=== PATIENT | female | born 1955 | race African-American/Black ===

== ENCOUNTER → 2022-03-25 | Emergency (ER) | payer MEDICARE, MEDICAID | LOC: NAV ERS 21:38 | DX: U07.1 COVID-19 (principal); J40 Bronchitis, not specified as acute or chronic; Z79.899 Other long term (current) drug therapy; Z79.01 Long term (current) use of anticoagulants; I10 Essential (primary) hypertension; E78.5 Hyperlipidemia, unspecified; F17.210 Nicotine dependence, cigarettes, uncomplicated | CPT/HCPCS: 71046; U0003; U0005 ==

== ENCOUNTER 2022-05-08 09:30 | Emergency (ER) | payer OTHER, MEDICAID, MEDICARE | END 2022-05-08 10:48 | disposition home or self-care (01) | LOC: NAV ERS 09:30 | DX: S20.211A Contusion of right front wall of thorax, initial encounter (principal); S20.01XA Contusion of right breast, initial encounter; I10 Essential (primary) hypertension; E78.5 Hyperlipidemia, unspecified; F17.210 Nicotine dependence, cigarettes, uncomplicated; Z79.01 Long term (current) use of anticoagulants; Z79.899 Other long term (current) drug therapy; X58.XXXA Exposure to other specified factors, initial encounter ==